=== PATIENT | female | born 1960 | race Caucasian/White ===

== ENCOUNTER 2017-11-09 10:06 | Inpatient (IN) | payer OTHER ==
[~2017-11-09] VITALS: Ht 165.1 cm; Wt 100.7 kg
--- NOTE | 2017-11-09 10:12 | NUR ---
CANDI FROM HOME DT PRESSURE LIKE CHEST PAIN, /10, RADIATING TO JAW, ON AND OFF SINCE YESTERDAY. PATIENT RECEIVED AWAKE AND ALERT. APPEARS IN NO APPARENT DISTRESS, AFEBRILE. VSS. CONNECTED PT TO TELE MONITOR. PENDING MD TOLENTINO
[2017-11-09] MEDS ORDERED: NITROGLYCERIN 0.4 MG/TAB BOTTLE SL ONE (10:30)
[2017-11-09 10:47] LABS: BASOPHILS # (AUTO) 0.2 /CMM (0.0-0.2); BASOPHILS % (AUTO) 2.6 % (0.0-2.0); EOSINOPHILS # (AUTO) 0.5 /CMM (0.0-0.7); EOSINOPHILS % (AUTO) 5.8 % (0.0-6.0); HEMATOCRIT 33 % (33-45); LYMPHOCYTES # (AUTO) 1.9 /CMM (0.8-4.8); LYMPHOCYTES % (AUTO) 21.3 % (20.0-44.0); MEAN CORPUSCULAR HEMOGLOBIN 26 PG (26.0-33.0); MEAN CORPUSCULAR HGB CONC 34 g/dl (31.0-36.0); MEAN CORPUSCULAR VOLUME 78 fL (82-100); MONOCYTES # (AUTO) 0.5 /CMM (0.1-1.30); MONOCYTES % (AUTO) 5.9 % (2.0-12.0); NEUTROPHILS # (AUTO) 5.8 /CMM (1.8-8.9); NEUTROPHILS % (AUTO) 64.4 % (43.0-81.0); PLATELET COUNT (AUTO) 282 /CMM (150-450); RDW COEFFICIENT OF VARIATION 13.6 (11.5-15.0); RED BLOOD CELL COUNT(AUTO) 4.18 MIL/uL (4.0-5.2); WHITE BLOOD COUNT (AUTO) 8.9 K/uL (4.3-11.0)
[2017-11-09] MEDS ORDERED: NITROGLYCERIN 0.4 MG/TAB BOTTLE ONE (10:53)
[2017-11-09] MEDS ORDERED: CARV25TA2 PO (10:56)
[2017-11-09] MEDS ORDERED: HYDR25TA4 PO (10:56)
[2017-11-09] MEDS ORDERED: ASPI-1169 PO (10:56)
[2017-11-09] MEDS ORDERED: ATOR10TA PO (10:56)
[2017-11-09] MEDS ORDERED: LAMO200T2 PO (10:56)
[2017-11-09] MEDS ORDERED: LOSA100T15 PO (10:56)
[2017-11-09] MEDS ORDERED: SITA100T PO (10:56)
[2017-11-09] MEDS ORDERED: METF10002 PO (10:56)
[2017-11-09 10:57] LABS: CALCIUM, SERUM 9.9 mg/dL (8.5-10.1); CARBON DIOXIDE 27 mmol/L (21-32); CHLORIDE 101 mmol/L (98-107); GLUCOSE 120 mg/dL (74-106); POTASSIUM 3.9 mmol/L (3.5-5.1); SODIUM SERUM 134 mmol/L (136-145); UREA NITROGEN, BLOOD 17 mg/dL (7-18)
--- NOTE | 2017-11-09 11:00 | NUR ---
PT DENIES CHEST PAIN. VSS. WILL MONITOR.
[2017-11-09 11:01] LABS: INR 0.89 (0.87-1.13)
[2017-11-09 11:06] LABS: TROPONIN I < 0.017 ng/mL (0.00-0.056)
--- NOTE | 2017-11-09 11:40 | NUR ---
[facility] PAGED, DELIVERY AGENT
[2017-11-09] MEDS ORDERED: LORAZEPAM 1 MG TABLET PO PRN (12:30)
[2017-11-09] MEDS ORDERED: NITROGLYCERIN 0.4 MG/TAB BOTTLE SL PRN (12:30)
--- NOTE | 2017-11-09 12:38 | NUR ---
TELE [id number] SLADE
[2017-11-09] MEDS ORDERED: FAMOTIDINE (20 MG) 20 MG TABLET PO ONE (13:00)
[2017-11-09] MEDS ORDERED: MAG HYDROX/AL HYDROX/SIMETH 30 ML UDC PO ONE ×2 (13:00→16:00)
--- NOTE | 2017-11-09 13:00 | NUR ---
REPORT GIVEN TO SLADE Jones RN FOR TELE [id number]
[2017-11-09 13:30] VITALS: BP 144/84
[2017-11-09] MEDS ORDERED: MORPHINE SULFATE INJ 4 MG/ML DISP.SYRIN IV PRN (13:30)
--- NOTE | 2017-11-09 13:30 | NUR ---
FEMALE PT. ADM. 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
[2017-11-09 16:00] VITALS: BP 132/70
[2017-11-09] MEDS ORDERED: METFORMIN 500 MG TABLET PO SCH ×2 (17:00→17:24)
[2017-11-09] MEDS: LamoTRIgine 100 MG TABLET PO SCH (17:25)
[2017-11-09] MEDS: METFORMIN 500 MG TABLET PO SCH (17:32)
--- NOTE | 2017-11-09 18:00 | NUR ---
REFUSED DVT PUMPS.
--- NOTE | 2017-11-09 18:30 | NUR ---
NO CHANGE IN STATUS.COMPLIANT AND COOPERATIVE.RECEIVING MULTIPLE PHONE CALLS.
--- NOTE | 2017-11-09 19:30 | NUR ---
RN NOTES RECEIVED PATIENT IN BED AWAKE, AO X 3, ABLE TO MAKE NEEDS KNOWN. NO ACUTE DISTRESS NOTED. DENIES ANY PAIN AT THIS TIME. SINUS RHYTHM ON MONITOR HR 77. IV SITE PATENT, INTACT; FLUSHED. SAFETY REMINDERS GIVEN. ON LOW BED WITH BILATERAL UPPER SIDE RAILS UP. CALL BHANDARI WITHIN EASY REACH. WILL CONTINUE TO MONITOR.
[2017-11-09 20:00] VITALS: BP 130/72
[2017-11-09] MEDS: CARVEDILOL 12.5 MG TABLET PO SCH (21:38)
[2017-11-09] MEDS ORDERED: SIMVASTATIN 40 MG TABLET PO SCH (22:00)
[2017-11-09] MEDS: ACETAMINOPHEN 325 MG TABLET PO PRN (22:16)
[2017-11-10] VITALS: BP_SYST 126; BP_SYST 93; BP_DIAS 45; BP_DIAS 65
[2017-11-10 04:00] VITALS: BP 126/65
--- NOTE | 2017-11-10 06:15 | NUR ---
RN NOTES PATIENT ASLEEP, AROUSABLE. RESPIRATIONS EVEN. NO SIGNS OF PAIN NOTED. SINUS RHYTHM HR 70. DUE MEDS GIVEN WITH NO ASE NOTED. NEEDS ATTENDED. SAFETY PRECAUTIONS AND COMFORT MEASURES IN PLACE. WILL GIVE REPORT TO DAY SHIFT FOR CONTINUITY OF CARE.
--- NOTE | 2017-11-10 07:10 | NUR ---
NETWORKER OPENING NOTES RECEIVED PT FROM NIGHTSHIFT NURSE IN STABLE CONDITION. NO SOB OR SIGNS OF DISTRESS NOTED. BREATHING IS EVEN AND UNLABORED. PT DENIES ANY CHEST PAIN AT THIS TIME. SHE IS SR ON THE TELE MONITOR WITH A HR OF 70. IV NOTED TO BE PATENT AND INTACT. BED IN LOW LOCKED POSITION, SIDE RAILS UP X2, CALL LIGHT WITHIN REACH. WILL CONTINUE TO MONITOR
--- NOTE | 2017-11-10 07:15 | NUR ---
UROLOGIC SURGEON/OPENING NOTES RECEIVED PT. IN BED A&OX4. TELE READING RHYTHM SINUS BRADYCARDIA 59 BPM. BREATHING UNLABORED, AND EVENLY ON ROOM AIR. NO S/S OF ACUTE DISTRESS. IV ACCESS ON RIGHT ANTECUBITAL SITE INTACT. BED IS IN LOWEST, AND LOCKED POSITION, 2 SIDE RAILS UP, AND INSTRUCTED PT. TO USE CALL LIGHT FOR ASSISTANCE. ALL NEEDS MET. WILL CONTINUE TO ASSESS AND MONITOR. Addendum: 11/10/17 at 0809 by GLENNA GRAF RN ERROR OPENING NOTE FOR DIFFERENT PATIENT.
[2017-11-10] MEDS: ACETAMINOPHEN 325 MG TABLET PO PRN ×2 (07:18→17:00)
[2017-11-10 07:53] LABS: BASOPHILS % (AUTO) 0.7 % (0.0-2.0); EOSINOPHILS # (AUTO) 0.3 /CMM (0.0-0.7); EOSINOPHILS % (AUTO) 4.5 % (0.0-6.0); HEMATOCRIT 33 % (33-45); HEMOGLOBIN 11.1 g/dL (11.5-14.8); LYMPHOCYTES # (AUTO) 2.6 /CMM (0.8-4.8); LYMPHOCYTES % (AUTO) 35.6 % (20.0-44.0); MEAN CORPUSCULAR HEMOGLOBIN 27 PG (26.0-33.0); MEAN CORPUSCULAR HGB CONC 33 g/dl (31.0-36.0); MEAN CORPUSCULAR VOLUME 81 fL (82-100); MONOCYTES # (AUTO) 0.6 /CMM (0.1-1.30); MONOCYTES % (AUTO) 8.7 % (2.0-12.0); NEUTROPHILS # (AUTO) 3.7 /CMM (1.8-8.9); NEUTROPHILS % (AUTO) 50.5 % (43.0-81.0); PLATELET COUNT (AUTO) 291 /CMM (150-450); RDW COEFFICIENT OF VARIATION 14.8 (11.5-15.0); RED BLOOD CELL COUNT(AUTO) 4.12 MIL/uL (4.0-5.2); WHITE BLOOD COUNT (AUTO) 7.3 K/uL (4.3-11.0)
[2017-11-10 08:00] VITALS: BP 122/71
[2017-11-10 08:08] LABS: CALCIUM, SERUM 10.6 mg/dL (8.5-10.1); CREATININE 0.9 mg/dL (0.6-1.3); MAGNESIUM 1.9 mg/dL (1.8-2.4); PHOSPHORUS 3.4 mg/dL (2.5-4.9); POTASSIUM 4.1 mmol/L (3.5-5.1)
[2017-11-10] MEDS: LamoTRIgine 100 MG TABLET PO SCH ×2 (08:38→16:59)
[2017-11-10] MEDS: METFORMIN 500 MG TABLET PO SCH ×2 (08:39→17:00)
[2017-11-10] MEDS: CARVEDILOL 12.5 MG TABLET PO SCH (08:47)
[2017-11-10] MEDS ORDERED: LINAGLIPTIN 5 MG TABLET PO SCH (09:00)
[2017-11-10] MEDS ORDERED: HYDROCHLOROTHIAZIDE 25 MG TABLET PO SCH (09:00)
[2017-11-10] MEDS ORDERED: LOSARTAN POTASSIUM 50 MG TABLET PO SCH (09:00)
[2017-11-10] MEDS ORDERED: ASPIRIN 81 MG TAB.CHEW PO SCH (09:00)
[2017-11-10 09:46] LABS: ALBUMIN 3.7 g/dL (3.4-5.0); BILIRUBIN,TOTAL 0.3 mg/dL (0.2-1.0); TOTAL PROTEIN, SERUM 7.3 g/dL (6.4-8.2)
[2017-11-10 09:54] LABS: THYROID STIMULATING HORMONE 4.12 uIU/mL (0.358-3.74)
[2017-11-10] MEDS ORDERED: Nitroglycerin SL (15:07)
[2017-11-10 16:00] VITALS: BP 144/77
[2017-11-10 19:06] VITALS: BP 148/86
--- NOTE | 2017-11-10 19:33 | NUR ---
MS RN CLOSING NOTES PT LEFT FACILITY IN STABLE CONDITION. SHE WAS TRANSFERRED BY AMBULANCE VIA ALS PROTOCOL. BEFORE TRANSPORT, PT STATED THAT SHE FELT MINOR CHEST PAIN AND ASKED FOR NITROGLYCERIN PRIOR TO TRANSPORT. VITAL SIGNS STABLE. PT REMAINED SR ON THE TELE MONITOR. AMBULANCE STAFF WAITED FIVE MINUTES POST NITRO ADMINISTRATION AND HER VITALS REMAINED STABLE. PT STATED THAT HER PAIN WAS RELIEVED BY THE NITRO. TRANSFER FACILITY WAS NOTIFIED WELL AND STATED THAT HER CARDIAC CATH WILL BE DONE TOMORROW MORNING. PT WAS IN AGREEMENT TO THIS WELL. ALL DUE MEDS GIVEN. PT LEFT WITH IV INTACT AND PATENT TO NS FLUSH. NO S/S OF INFILTRATION NOTED. REPORT CALLED AND GIVEN TO DANAE THE RECEIVING NURSE.
== END 2017-11-10 19:30 | disposition short-term general hospital (02) | DRG 206 ==
LOC: ER 10:10 → TELE 13:16
PROVIDERS: ADMIT Internal Medicine; ATTEND Internal Medicine
DX: M94.0 Chondrocostal junction syndrome [Tietze] (principal); I11.0 Hypertensive heart disease with heart failure; E83.52 Hypercalcemia; I50.32 Chronic diastolic (congestive) heart failure; I25.10 Atherosclerotic heart disease of native coronary artery without angina pectoris; E11.9 Type 2 diabetes mellitus without complications; E78.5 Hyperlipidemia, unspecified; G40.909 Epilepsy, unspecified, not intractable, without status epilepticus; I25.2 Old myocardial infarction; K21.9 Gastro-esophageal reflux disease without esophagitis; Z79.84 Long term (current) use of oral hypoglycemic drugs; Z95.5 Presence of coronary angioplasty implant and graft
CPT/HCPCS: 36415; 71045-TC; 80048-TC; 80061-TC; 80076-TC; 82306; 82962-TC; 83735-TC; 84100-TC; 84439-TC; 84443-TC; 84484-TC; 85025-TC; 85730-TC; 87081-TC; 93307-TC; A4606; Z7610